=== PATIENT | female | born 1960 ===

== ENCOUNTER 2017-10-13 11:52 | Emergency (ER) | payer OTHER ==
[2017-10-13 12:05] VITALS: RESP 18; TEMP 98.3; O2SAT 98
[2017-10-13] MEDS ORDERED: Lidocaine 5% Patch TD ONE (12:30)
--- NOTE | 2017-10-13 12:40 | RAD ---
PROCEDURE: Right shoulder dated 10/13/2017 HISTORY: Status post fall COMPARISON: No prior studies available comparison FINDINGS: BONES: No evidence of acute displaced fracture nor dislocation. The osseous structures intact JOINTS: Very minor degenerative osteoarthritis right acromioclavicular joint and right glenohumeral joints. SOFT TISSUES: Soft tissues are grossly unremarkable without evidence of subcutaneous emphysema or radiopaque foreign bodies OTHER FINDINGS: None. IMPRESSION: No acute fractures. Minor degenerative osteoarthritis as above.
--- NOTE | 2017-10-13 12:56 | C.PDOC ---
History Of Present Illness 57yo female with no past medical history, presents to ER with complaints of right shoulder and arm pain after she tripped and fell 2 days ago, landing on that arm. She states the pain starts in her trapezius area and radiates down her arm; also has trouble raising her arm. Patient states she has been taking Tramadol for pain (pills left over from prior evaluation for pain) but stopped because of nausea. She denies any head injury, loss of consciousness or headaches. No other complaints. PMD: None Time Seen by Provider: 10/13/17 12:13 Chief Complaint (Nursing): Upper Extremity Problem/Injury History Per: Patient History/Exam Limitations: no limitations Onset/Duration Of Symptoms: Days Current Symptoms Are (Timing): Still Present Quality: "Pain" Exacerbating Factor(s): Strenuous Use Of Affected Area Past Medical History Reviewed: Historical Data, Nursing Documentation, Vital Signs Vital Signs: Last Vital Signs Temp 98.3 F 10/13/17 12:01 Pulse 54 L 10/13/17 13:11 Resp 18 10/13/17 13:11 BP 126/81 10/13/17 13:11 Pulse Ox 98 10/13/17 13:11 - Medical History PMH: Back Problems, CHF, HTN, Hypercholesterolemia Surgical History: Back Surgery Family History: States: No Known Family Hx - Social History Hx Alcohol Use: No Hx Substance Use: No - Immunization History Hx Tetanus Toxoid Vaccination: Yes Hx Influenza Vaccination: No Hx Pneumococcal Vaccination: No Review Of Systems Except As Marked, All Systems Reviewed And Found Negative. Musculoskeletal: Positive for: Shoulder Pain (right), Arm Pain (right) Neurological: Negative for: Headache, Other (loss of consciousness) Physical Exam - Physical Exam Appears: Non-toxic, No Acute Distress Skin: Normal Color, Warm, Dry Head: Atraumatic, Normacephalic Eye(s): bilateral: Normal Inspection Neck: Normal ROM, Supple Chest: Symmetrical Cardiovascular: Rhythm Regular Respiratory: Normal Breath Sounds Extremity: No Normal ROM (Decreased ROM of right shoulder due to pain ), Tenderness (tenderness to right shoulder), No Deformity, No Swelling Neurological/Psych: Oriented x3 ED Course And Treatment O2 Sat by Pulse Oximetry: 98 (RA) Pulse Ox Interpretation: Normal Medical Decision Making Medical Decision Making: Impression: Musculoskeletal pain Plan: -- Tylenol 975mg PO -- XR Right shoulder -- Lidoderm patch Patient reports improvement in pain; stable for discharge home. Patient placed in sling and instructed to follow up with PMD in 2-3 days. Disposition Counseled Patient/Family Regarding: Studies Performed, Diagnosis, Need For Followup, Rx Given - Disposition Referrals: [facility] [Outside] Disposition: HOME/ ROUTINE Disposition Time: 12:55 Condition: STABLE Instructions: Contusion (DC) Forms: Gen Discharge Inst Macedonian, [facility] (Macedonian) - Clinical Impression Clinical Impression: Contusion, Muscle strain - Scribe Statement The provider has reviewed the documentation as recorded by the Scribe (Juliette Green) Provider Attestation: All medical record entries made by the Scribe were at my direction and personally dictated by me. I have reviewed the chart and agree that the record accurately reflects my personal performance of the history, physical exam, medical decision making, and the department course for this patient. I have also personally directed, reviewed, and agree with the discharge instructions and disposition.
[2017-10-13 13:12] VITALS: BP 126/81; PULSE 54
[2017-10-14] MEDS ORDERED: Lidocaine 5% Patch TD SCH (10:00)
== END 2017-10-13 13:12 | disposition home or self-care (01) ==
LOC: C.ER 11:52
DX: S46.911A Strain of unspecified muscle, fascia and tendon at shoulder and upper arm level, right arm, initial encounter (principal); S40.011A Contusion of right shoulder, initial encounter; W01.0XXA Fall on same level from slipping, tripping and stumbling without subsequent striking against object, initial encounter

== ENCOUNTER 2018-02-16 08:25 | Emergency (ER) | payer SELFPAY ==
[2018-02-16 08:40] VITALS: BMI 30.7
[2018-02-16 08:42] VITALS: BP 182/98; PULSE 66; RESP 18; TEMP 98.2; O2SAT 99
--- NOTE | 2018-02-16 09:13 | C.PDOC ---
History Of Present Illness 58yo female, comes to ER for evaluation of left upper back pain after she accidentally fell 3 days ago. She reports the pain is persistent, worse with movement and deep breathing. She has not taken any meds for her pain. Otherwise , denies any weakness, numbness, tingling, chest pain or shortness of breath. She offers no additional medical complaints. L UPPER BACK PAIN SP FALL 3 DAYS. ACCID FELL ONTO L UPPER BACK CO PERSIST PAIN WORSE W MOVEMENT, DEEP BREATHING. NO PAIN MEDS TRIED. DENIES OTHER ASSOC SX EXAM NAD NONTOXIC BACK +DIFFUSE TEND/SPASM L UPPER/MID BACK. NO SWELL NO SPINAL TEND LIMITED ROM CHEST WALL NO FOCAL BONY TEND SKIN INTACT NEURO INTACT REMAINDER NEG Time Seen by Provider: 02/16/18 09:09 Chief Complaint (Nursing): Back Pain History Per: Patient History/Exam Limitations: no limitations Onset/Duration Of Symptoms: Days Current Symptoms Are (Timing): Still Present Quality Of Discomfort: "Pain" Associated Symptoms: denies: Incontinence, New Weakness, New Numbness Exacerbating Factor(s): Movement, Other (deep breathing) Additional History Per: Patient Past Medical History Reviewed: Historical Data, Nursing Documentation, Vital Signs Vital Signs: Last Vital Signs Temp 98.2 F 02/16/18 08:34 Pulse 66 02/16/18 08:34 Resp 18 02/16/18 08:34 BP 182/98 H 02/16/18 08:34 Pulse Ox 99 02/16/18 09:50 - Medical History PMH: Back Problems, CHF, HTN, Hypercholesterolemia Surgical History: Back Surgery Family History: States: No Known Family Hx - Social History Hx Alcohol Use: No Hx Substance Use: No - Immunization History Hx Tetanus Toxoid Vaccination: Yes Hx Influenza Vaccination: Yes (2017) Hx Pneumococcal Vaccination: No Review Of Systems Cardiovascular: Negative for: Chest Pain Respiratory: Negative for: Shortness of Breath Musculoskeletal: Positive for: Back Pain Neurological: Negative for: Weakness, Numbness Physical Exam - Physical Exam Appears: Non-toxic, No Acute Distress Skin: Normal Color Head: Atraumatic, Normacephalic Chest: Symmetrical, Tenderness Cardiovascular: Rhythm Regular Respiratory: Normal Breath Sounds Back: No Vertebral Tenderness, Decreased ROM (due to pain), Muscle Spasm ( diffuse tenderness with spasm in left upper/mid back.) Neurological/Psych: Oriented x3 ED Course And Treatment O2 Sat by Pulse Oximetry: 99 (RA) Pulse Ox Interpretation: Normal - Radiology CXR: Interpreted by Me CXR Interpretation: Yes: No Acute Disease - Other Rad L RIBS X-Ray: Interpreted by Me (NEG) Progress Note: XR Ribs 2 views ordered. Patient given Tylenol, Flexeril and Lidocaine patch. On reassessment, patient reports improvement in pain. Stable for discharge home. Disposition Counseled Patient/Family Regarding: Studies Performed, Diagnosis, Need For Followup, Rx Given - Disposition Referrals: YOUR,PMD [Other] Disposition: HOME/ ROUTINE Disposition Time: 09:49 Condition: IMPROVED Prescriptions: Lidocaine 5% [Lidoderm] 1 ea TD PRN PRN #10 patch PRN Reason: Pain, Moderate (4-7) oxyCODONE/Acetaminophen [Percocet 5/325 mg Tab] 1 ea PO QID #8 tab Instructions: Upper Back Pain (DC) Forms: [employer] (Kosovan) Print Language: CITIZ[place] - Clinical Impression Clinical Impression: Contusion of back, Back spasm - Scribe Statement The provider has reviewed the documentation as recorded by the Carmelita Green Provider Attestation: All medical record entries made by the Carmelita were at my direction and personally dictated by me. I have reviewed the chart and agree that the record accurately reflects my personal performance of the history, physical exam, medical decision making, and the department course for this patient. I have also personally directed, reviewed, and agree with the discharge instructions and disposition.
[2018-02-16] MEDS ORDERED: Lidocaine 5% Patch TD STA (09:15)
[2018-02-16] MEDS ORDERED: Lidocaine 5% Patch TD ONE (09:22)
--- NOTE | 2018-02-16 10:48 | RAD ---
Date of service: 02/16/2018 PROCEDURE: Radiographs of the Chest and Left Ribs. HISTORY: TRAUMA COMPARISON: None available. TECHNIQUE: Frontal radiograph of the chest and multiple oblique radiographs of the left ribs were obtained. FINDINGS: LEFT RIBS: No fracture or focal lesion visualized. LUNGS: Clear. PLEURA: No pneumothorax or pleural fluid. CARDIOVASCULAR: Normal sized heart. No pulmonary vascular congestion.Atherosclerotic vascular calcifications present. OTHER FINDINGS: Thoracic spondylosis. IMPRESSION: . No left rib fracture. Thoracic spondylosis
== END 2018-02-16 10:02 | disposition home or self-care (01) ==
LOC: C.ER 08:25
DX: S20.222A Contusion of left back wall of thorax, initial encounter (principal); W19.XXXA Unspecified fall, initial encounter; E78.00 Pure hypercholesterolemia, unspecified; I50.9 Heart failure, unspecified; I10 Essential (primary) hypertension; M62.830 Muscle spasm of back